=== PATIENT | female | born 1955 | race Two or more races ===

== ENCOUNTER 2022-06-25 07:05 | Day surgery (SDC) | payer OTHER | END 2022-06-25 13:30 | disposition home or self-care (01) | LOC: AMB-ENDOS 07:05 | PROVIDERS: ATTEND Surgery | DX: D12.2 Benign neoplasm of ascending colon (principal); K57.90 Diverticulosis of intestine, part unspecified, without perforation or abscess without bleeding; R19.4 Change in bowel habit; E11.9 Type 2 diabetes mellitus without complications; E78.5 Hyperlipidemia, unspecified; I10 Essential (primary) hypertension; Z20.822 Contact with and (suspected) exposure to COVID-19 ==

== ENCOUNTER 2022-10-25 08:30 | Inpatient (IN) | payer OTHER ==
[~2022-10-25] VITALS: Ht 162.6 cm; Wt 92.5 kg
[2022-10-25] MEDS ORDERED: ZESTRIL10 M1 PO (15:59)
[2022-11-01] MEDS ORDERED: HYOSCYAMINE0.125 M1 SL (11:52)
[2022-11-01] MEDS ORDERED: TRAM1TAB98 PO (11:53)
[2022-11-01] MEDS ORDERED: PEPCID AC20 MG PO (11:53)
== END 2022-11-01 17:42 | DRG 331 ==
LOC: ADM 08:30 → SURG 10-29 06:47 → O/R 10-29 06:47 → EDSTATUS 10-29 08:30 → CIR.AMB 10-29 08:30 → SURH 10-29 08:30 → SURG 10-29 16:24 → SURH 10-29 16:30 → SURG 11-01 17:42
PROVIDERS: ADMIT Surgery; ATTEND Surgery
PROC: 07BB4ZZ Excision of Mesenteric Lymphatic, Percutaneous Endoscopic Approach (ICD-10-PCS; 2022-10-29)
PROC: 0DTF4ZZ Resection of Right Large Intestine, Percutaneous Endoscopic Approach (ICD-10-PCS; principal; 2022-10-29 16:30)
DX: D12.2 Benign neoplasm of ascending colon (principal); R59.0 Localized enlarged lymph nodes; R19.4 Change in bowel habit